=== PATIENT | female | born 1990 | race Caucasian/White ===

== ENCOUNTER 2017-06-05 09:15 | Emergency (ER) | payer MEDICAID ==
[2017-06-05 11:22] LABS: ADD MAN DIFF? NO
[2017-06-05] MEDS: ONDANSETRON 4 MG INJ IV (11:25)
[2017-06-05 11:32] LABS: WHITE BLOOD COUNT 15.8 10^3/ul (4.8-10.8)
[2017-06-05 11:32] LABS: BASOPHILS % 0.1 % (0.0-2.0); EOSINOPHILS % 0.3 % (0.0-7.0); HEMATOCRIT 33.8 % (37.0-47.0); HEMOGLOBIN 11.8 g/dl (12.0-16.0); LYMPHOCYTES # 1.2 10^3/ul (0.8-2.9); LYMPHOCYTES % 7.8 % (15.0-51.0); MEAN CORPUSCULAR HEMOGLOBIN 31.1 pg (29.0-33.0); MEAN CORPUSCULAR HGB CONC 34.9 g/dl (32.0-37.0); MEAN CORPUSCULAR VOLUME 88.9 fl (82.0-101.0); MEAN PLATELET VOLUME 9.4 fl (7.4-10.4); MONOCYTE # 0.9 10^3/ul (0.3-0.9); MONOCYTES % 5.6 % (0.0-11.0); NEUTROPHIL # 13.6 10^3/ul (1.6-7.5); NEUTROPHILS % 85.8 % (39.0-77.0); PLATELET COUNT 310 10^3/UL (140-415); RED CELL DISTRIBUTION WIDTH 12.8 % (11.5-14.5)
[2017-06-05] MEDS: SOD CHLORIDE 0.9% 1,000 ML IV (11:34)
[2017-06-05 11:35] LABS: ADD UMIC YES; UR ASCORBIC ACID NEGATIVE (NEGATIVE); UR BACTERIA MANY /HPF (NONE SEEN); UR BILIRUBIN (Dip) NEGATIVE (NEGATIVE); UR BLOOD (Dip) 2+ mg/dL (NEGATIVE); UR CLARITY SLIGHTLY CLOUDY (CLEAR); UR COLOR YELLOW (YELLOW); UR GLUCOSE (Dip) NEGATIVE (NEGATIVE); UR KETONES (Dip) NEGATIVE (NEGATIVE); UR LEUKOCYTE ESTERASE (Dip) 3+ Leu/ul (NEGATIVE); UR MUCUS FEW /HPF (NONE SEEN); UR NITRITE (Dip) NEGATIVE (NEGATIVE); UR RBC 4 /HPF (0-5); UR TOTAL PROTEIN (Dip) 1+ mg/dl (NEGATIVE); UR UROBILINOGEN (Dip) NEGATIVE (NEGATIVE); UR WBC 134 /HPF (0-5)
[2017-06-05] MEDS: ACETAMINOPHEN 325 MG TAB PO (13:18)
== END 2017-06-05 13:41 | disposition home or self-care (01) ==
LOC: FTE 09:15
DX: O23.42 Unspecified infection of urinary tract in pregnancy, second trimester (principal); R10.2 Pelvic and perineal pain; M54.5 Low back pain; Z3A.16 16 weeks gestation of pregnancy
CPT/HCPCS: 36415; 76805; 81001; 84702; 85025; 86900; 86901; 96374; 99285-25

== ENCOUNTER 2017-08-10 22:29 | Inpatient (IN) | payer MEDICAID ==
[2017-08-10 23:37] LABS: ADD UMIC YES; UR ASCORBIC ACID NEGATIVE (NEGATIVE); UR BACTERIA FEW /HPF (NONE SEEN); UR BILIRUBIN (Dip) NEGATIVE (NEGATIVE); UR BLOOD (Dip) 2+ mg/dL (NEGATIVE); UR CLARITY SLIGHTLY CLOUDY (CLEAR); UR COLOR STRAW (YELLOW); UR GLUCOSE (Dip) NEGATIVE (NEGATIVE); UR KETONES (Dip) NEGATIVE (NEGATIVE); UR LEUKOCYTE ESTERASE (Dip) 3+ Leu/ul (NEGATIVE); UR NITRITE (Dip) NEGATIVE (NEGATIVE); UR RBC 1 /HPF (0-5); UR SPECIFIC GRAVITY (Dip) 1.004 (1.003-1.030); UR SQUAMOUS EPITHELIAL CELL FEW /HPF (FEW); UR TOTAL PROTEIN (Dip) 2+ mg/dl (NEGATIVE); UR UROBILINOGEN (Dip) NEGATIVE (NEGATIVE); UR WBC 109 /HPF (0-5)
[2017-08-11] MEDS ORDERED: LACTATED RINGER'S 500 ML IV ×2 (02:23→04:42)
[2017-08-11] MEDS ORDERED: ACETAMINOPHEN 325 MG TAB PO (02:30)
[2017-08-11] MEDS ORDERED: ONDANSETRON 4 MG INJ IV (02:30)
[2017-08-11] MEDS: LACTATED RINGER'S 1,000 ML IV ×3 (03:57→20:15)
[2017-08-11] MEDS: BETAMET NA PHOS/AC(6 MG/ML) 5ML INJ IM (03:58)
[2017-08-11 04:07] LABS: ADD MAN DIFF? NO
[2017-08-11 04:29] LABS: BASOPHILS % 0.1 % (0.0-2.0); EOSINOPHILS # 0.1 10^3/ul (0.0-0.5); EOSINOPHILS % 0.4 % (0.0-7.0); HEMATOCRIT 31.9 % (37.0-47.0); HEMOGLOBIN 10.9 g/dl (12.0-16.0); INR 0.97; LYMPHOCYTES # 1.3 10^3/ul (0.8-2.9); LYMPHOCYTES % 9.4 % (15.0-51.0); MEAN CORPUSCULAR HGB CONC 34.2 g/dl (32.0-37.0); MEAN CORPUSCULAR VOLUME 90.6 fl (82.0-101.0); MEAN PLATELET VOLUME 9.6 fl (7.4-10.4); MONOCYTE # 0.6 10^3/ul (0.3-0.9); MONOCYTES % 4.4 % (0.0-11.0); NEUTROPHIL # 11.7 10^3/ul (1.6-7.5); NEUTROPHILS % 85.2 % (39.0-77.0); PARTIAL THROMBOPLASTIN TIME 24.8 Sec (25.0-35.0); PLATELET COUNT 289 10^3/UL (140-415); RED BLOOD COUNT 3.52 10^6/ul (4.20-5.40); RED CELL DISTRIBUTION WIDTH 13.4 % (11.5-14.5)
[2017-08-11 04:29] LABS: WHITE BLOOD COUNT 13.8 10^3/ul (4.8-10.8)
[2017-08-11 04:45] LABS: ALANINE AMINOTRANSFERASE 38 IU/L (13-69); ALBUMIN 3.5 g/dl (3.3-4.9); ALBUMIN/GLOBULIN RATIO 1.02; ALKALINE PHOSPHATASE 119 IU/L (42-121); ANION GAP 16 (8-16); ASPARTATE AMINO TRANSFERASE 22 IU/L (15-46); BILIRUBIN,INDIRECT 0.2 mg/dl (0-1.1); BILIRUBIN,TOTAL 0.2 mg/dl (0.2-1.3); BLOOD UREA NITROGEN 8 mg/dl (7-20); CALCIUM 8.7 mg/dl (8.4-10.2); CARBON DIOXIDE 21 mmol/L (21-31); CHLORIDE 110 mmol/L (97-110); CREATININE 0.48 mg/dl (0.44-1.00); GLUCOSE 102 mg/dl (70-220); POTASSIUM 3.7 mmol/L (3.5-5.1); SODIUM 143 mmol/L (135-144); TOTAL PROTEIN 6.9 g/dl (6.1-8.1)
[2017-08-11] MEDS: CEFAZOLIN 1 GM/50 ML (PMX) 50 ML IVPB ×3 (05:52→20:21)
[2017-08-11] MEDS: DOCUSATE SODIUM 100 MG CAP PO (09:05)
[2017-08-11] MEDS: PRENATAL VITAMIN PO (09:06)
[2017-08-12] MEDS: CEFAZOLIN 1 GM/50 ML (PMX) 50 ML IVPB ×2 (00:55→05:50)
[2017-08-12] MEDS: BETAMET NA PHOS/AC(6 MG/ML) 5ML INJ IM (03:42)
[2017-08-12] MEDS: LACTATED RINGER'S 1,000 ML IV (04:20)
[2017-08-12] MEDS: DOCUSATE SODIUM 100 MG CAP PO (09:55)
[2017-08-12] MEDS: PRENATAL VITAMIN PO (09:55)
[2017-08-12] MEDS: CEPHALEXIN 500 MG CAP PO (18:16)
[2017-08-13] MEDS: CEPHALEXIN 500 MG CAP PO ×2 (00:03→05:52)
[2017-08-13] MEDS: PRENATAL VITAMIN PO (10:16)
[2017-08-13] MEDS: DOCUSATE SODIUM 100 MG CAP PO (10:16)
[2017-08-13] MEDS: AMOXICILLIN 500 MG CAP PO (13:04)
== END 2017-08-13 16:11 | disposition home or self-care (01) | DRG 780 ==
LOC: OBT 22:29 → L-D 22:30 → PP1 08-11 02:00
PROVIDERS: Obstetrics & Gynecology
DX: O47.02 False labor before 37 completed weeks of gestation, second trimester (principal); Z3A.26 26 weeks gestation of pregnancy
CPT/HCPCS: 76815; 76817; 80053; 81001; 82731; 85025; 85610; 85730; 86850; 86900; 86901; 87086

== ENCOUNTER 2017-11-15 08:48 | Inpatient (IN) | payer MEDICAID ==
[2017-11-15] MEDS ORDERED: CEFAZOLIN 2 GM/50 ML (PMX) 50 ML IV (09:30)
[2017-11-15] MEDS ORDERED: CARBOPROST 250 MCG INJ IM ×2 (09:30→18:30)
[2017-11-15] MEDS ORDERED: METHYLERGONOVINE 0.2 MG INJ IM ×2 (09:30→18:30)
[2017-11-15] MEDS ORDERED: MISOPROSTOL 200 MCG TAB PR ×2 (09:30→18:30)
[2017-11-15] MEDS ORDERED: OXYTOCIN 30 UNITS/LR 500 ML IV ×4 (09:30→18:30)
[2017-11-15] MEDS: LACTATED RINGER'S 1,000 ML IV ×2 (09:44→12:58)
[2017-11-15 09:58] LABS: ADD MAN DIFF? NO
[2017-11-15 10:02] LABS: BASOPHILS % 0.3 % (0.0-2.0); EOSINOPHILS # 0.1 10^3/ul (0.0-0.5); EOSINOPHILS % 1.1 % (0.0-7.0); HEMATOCRIT 39.7 % (37.0-47.0); HEMOGLOBIN 13.3 g/dl (12.0-16.0); LYMPHOCYTES # 1.9 10^3/ul (0.8-2.9); LYMPHOCYTES % 21.8 % (15.0-51.0); MEAN CORPUSCULAR HEMOGLOBIN 30.6 pg (29.0-33.0); MEAN CORPUSCULAR HGB CONC 33.5 g/dl (32.0-37.0); MEAN CORPUSCULAR VOLUME 91.5 fl (82.0-101.0); MEAN PLATELET VOLUME 12.2 fl (7.4-10.4); MONOCYTE # 0.6 10^3/ul (0.3-0.9); MONOCYTES % 6.8 % (0.0-11.0); NEUTROPHIL # 6.2 10^3/ul (1.6-7.5); NEUTROPHILS % 69.5 % (39.0-77.0); PLATELET COUNT 216 10^3/UL (140-415); RED BLOOD COUNT 4.34 10^6/ul (4.20-5.40); RED CELL DISTRIBUTION WIDTH 13.5 % (11.5-14.5)
[2017-11-15 10:02] LABS: WHITE BLOOD COUNT 8.9 10^3/ul (4.8-10.8)
[2017-11-15 10:21] LABS: INR 0.84; PROTIME 11.6 Sec (11.9-14.9); PT RATIO 0.9
[2017-11-15 10:22] LABS: PARTIAL THROMBOPLASTIN TIME 21.8 Sec (25.0-35.0)
[2017-11-15] MEDS: TERBUTALINE 1 MG/ML INJ SC (11:15)
[2017-11-15] MEDS ORDERED: DIPHENHYDRAMINE 50 MG INJ IV (12:00)
[2017-11-15] MEDS ORDERED: FENTAnyl 2MCG/ML-ROPIV 0.2% 100 ML BAG EPI (12:00)
[2017-11-15] MEDS ORDERED: HYDROmorphONE 0.5 MG/0.5 ML SYG IV ×2 (12:00)
[2017-11-15] MEDS ORDERED: NALOXONE (0.4 MG/ML) INJ IV (12:00)
[2017-11-15] MEDS ORDERED: ONDANSETRON 4 MG INJ IV (12:00)
[2017-11-15] MEDS ORDERED: KETOROLAC 30 MG INJ IV (12:00)
[2017-11-15] MEDS: AMPICILLIN 2 GM/NS (PMX) 100 ML IV (12:58)
[2017-11-15 13:36] LABS: HEPATITIS B SURFACE ANTIGEN NEGATIVE (NEGATIVE)
[2017-11-15] MEDS ORDERED: IBUPROFEN 600 MG TAB PO (14:00)
[2017-11-15] MEDS ORDERED: LIDOCAINE 1% (MPF) 30 ML INJ INJ (14:30)
[2017-11-15] MEDS: OXYTOCIN 30 UNITS/LR 500 ML IV ×2 (16:07→16:20)
[2017-11-15] MEDS ORDERED: AMPICILLIN 1 GM/NS (PMX) 50 ML IV (17:00)
[2017-11-15] MEDS ORDERED: ACETAMINOPHEN 325 MG TAB PO (18:30)
[2017-11-15] MEDS ORDERED: ZOLPIDEM 5 MG TAB PO (18:30)
[2017-11-15] MEDS ORDERED: MAGNESIUM HYDROXIDE 30ML CUP PO (18:30)
[2017-11-15] MEDS ORDERED: DIPHENHYDRAMINE 25 MG CAP PO (18:30)
[2017-11-15] MEDS ORDERED: BENZOCAINE 20% 56 ML SPRAY TOP (18:30)
[2017-11-15] MEDS ORDERED: HYDROCODONE/APAP (5/325) TAB PO (18:30)
[2017-11-15] MEDS ORDERED: SENNA/DOCUSATE NA (8.6MG/50MG) TAB PO (18:30)
[2017-11-15] MEDS ORDERED: WITCH HAZEL/GLYCERIN PAD PR (18:30)
[2017-11-15 21:44] LABS: RAPID PLASMA REAGIN NONREACTIVE (NR)
[2017-11-16] MEDS: IBUPROFEN 800 MG TAB PO ×5 (00:10→18:41)
[2017-11-16 09:09] LABS: ADD MAN DIFF? NO
[2017-11-16 09:17] LABS: WHITE BLOOD COUNT 11.3 10^3/ul (4.8-10.8)
[2017-11-16 09:17] LABS: BASOPHILS % 0.2 % (0.0-2.0); EOSINOPHILS # 0.2 10^3/ul (0.0-0.5); EOSINOPHILS % 1.4 % (0.0-7.0); HEMATOCRIT 32.1 % (37.0-47.0); HEMOGLOBIN 10.9 g/dl (12.0-16.0); LYMPHOCYTES # 2.7 10^3/ul (0.8-2.9); LYMPHOCYTES % 23.8 % (15.0-51.0); MEAN CORPUSCULAR HEMOGLOBIN 31.6 pg (29.0-33.0); MEAN PLATELET VOLUME 11.9 fl (7.4-10.4); MONOCYTE # 0.6 10^3/ul (0.3-0.9); MONOCYTES % 5.5 % (0.0-11.0); NEUTROPHIL # 7.8 10^3/ul (1.6-7.5); NEUTROPHILS % 68.7 % (39.0-77.0); PLATELET COUNT 187 10^3/UL (140-415); RED BLOOD COUNT 3.45 10^6/ul (4.20-5.40)
[2017-11-16] MEDS: OXYTOCIN 30 UNITS/LR 500 ML IV (09:19)
[2017-11-16] MEDS: LACTATED RINGER'S 1,000 ML IV* ×2 (09:20)
[2017-11-16] MEDS: LANOLIN 7 GM TUBE TOP (12:59)
[2017-11-17] MEDS: IBUPROFEN 800 MG TAB PO ×3 (00:15→12:00)
[2017-11-17] MEDS: MEASLES,MUMPS,RUBELLA VACCINE INJ SC* (08:35)
[2017-11-17] MEDS: DIPHTH/TET/ACEL PERTUSS (ADULT) 0.5 ML VIAL IM* (12:51)
[2017-11-17] MEDS: VARICELLA VACCINE LIVE/PF 1,350 UNIT/0.5 ML ML SC* (12:57)
== END 2017-11-17 14:25 | disposition home or self-care (01) | DRG 775 ==
LOC: OBT 08:48 → L-D 08:48 → OBT 09:22 → L-D 09:22 → PP1 17:44
PROVIDERS: Obstetrics & Gynecology
PROC: 10D07Z6 Extraction of Products of Conception, Vacuum, Via Natural or Artificial Opening (ICD-10-PCS; principal; 2017-11-15)
PROC: 3E033VJ Introduction of Other Hormone into Peripheral Vein, Percutaneous Approach (ICD-10-PCS; 2017-11-15)
DX: O48.0 Post-term pregnancy (principal); Z3A.40 40 weeks gestation of pregnancy; O34.211 Maternal care for low transverse scar from previous cesarean delivery; Z37.0 Single live birth
CPT/HCPCS: 62319; 85025; 85610; 85730; 86592; 86850; 86900; 86901; 87340; 90715; 90716; 99464